=== PATIENT | female | born 1995 | race Caucasian/White ===

== ENCOUNTER 2017-03-18 13:04 | Emergency (ER) | payer BC ==
[~2017-03-18] VITALS: Ht 165.1 cm; Wt 54.0 kg
[2017-03-18 15:38] LABS: ADD MIUA? NO; BILIRUBIN NEGATIVE; BLOOD NEGATIVE; COLOR STRAW ((YELLOW)); GLUCOSE (STRIP) NEGATIVE; KETONES NEGATIVE; LEUKOCYTES NEGATIVE; NITRITE NEGATIVE; PROTEIN (STRIP) NEGATIVE; SPECIFIC GRAVITY 1.003 (1.000-1.030); UCUL ADDED? NO; UROBILINOGEN 0.2 MG/DL (0.2-1.0)
[2017-03-18] MEDS ORDERED: PREDNISONE50 MG PO (16:36)
[2017-03-18] MEDS ORDERED: ZANTAC300 MG PO (16:46)
[2017-03-18 17:02] VITALS: BP 132/84
[2017-03-19] MEDS ORDERED: PREDNISONE10 MG PO (02:51)
[2017-03-19] MEDS ORDERED: EPIPEN ADU0.3 MG/0.3 IM (02:52)
== END 2017-03-18 17:12 | disposition home or self-care (01) ==
LOC: EME 13:04
PROVIDERS: Emergency Medicine
DX: T78.40XA Allergy, unspecified, initial encounter (principal)
CPT/HCPCS: 81003; 99281; 99284; J1200; J2930; S0028

== ENCOUNTER 2017-03-18 22:53 | Emergency (ER) | payer BC ==
[~2017-03-18] VITALS: Ht 165.1 cm; Wt 57.8 kg
[~2017-03-18 22:53] MED LIST: PREDNISONE50 MG PO; ZANTAC300 MG PO
[2017-03-18 23:59] LABS: EOSINOPHIL (%) 0 % (0-5); HEMATOCRIT 35.1 % (36.0-46.0); IMMATURE GRANULOCYTE (%) 0.7 % (0.0-0.7); IMMATURE GRANULOCYTE COUNT 0.1 K/uL; INSTRUMENT ABS NEUTROPHIL CT 18.8 K/uL; LYMPHOCYTE COUNT 0.4 K/uL (1.0-2.8); MCH 28.6 PG (29.0-34.0); MCHC 32.8 G/DL (30.0-36.0); MCV 87.3 FL (83-99); MEAN PLAT.VOLUME 11.4 uM^3 (9.5-12.4); MONOCYTE (%) 2.2 % (3-12); MONOCYTE COUNT 0.4 K/uL (0-0.8); NEUTROPHIL COUNT 18.8 K/uL (1.8-6.4); PLATELET COUNT 144 K/uL (156-360); RBC DIS.WIDTH-CV 12.6 % (11.8-14.6); RBC DIS.WIDTH-SD 40.3 % (39-53); RED BLOOD COUNT 4.02 M/uL (3.80-5.20); WHITE BLOOD COUNT 19.7 K/uL (4.1-10.2)
[2017-03-19 00:11] LABS: CHLORIDE 112 mEq/L (99-109); POTASSIUM 3.9 mEq/L (3.7-5.4); SODIUM 140 mEq/L (136-147)
[2017-03-19 00:13] LABS: GLUCOSE 153 mg/dL (70-99)
[2017-03-19 00:14] LABS: ANION GAP 7 MEQ/L (2-14)
[2017-03-19 00:17] LABS: GFR ESTIMATE (CALCULATED) > 59 mL/min/
[2017-03-19 00:18] LABS: UREA NITROGEN (BUN) 8 mg/dL (9-23)
[2017-03-19 01:45] LABS: ERTH.SED.RATE 3 MM/HR (0-20)
[2017-03-19] MEDS ORDERED: PREDNISONE10 MG PO (02:51)
[2017-03-19] MEDS ORDERED: EPIPEN ADU0.3 MG/0.3 IM (02:52)
[2017-03-19 03:11] LABS: C-REACTIVE PROTEIN 13.5 MG/L (0-10)
[2017-03-19 03:46] VITALS: BP 108/78
== END 2017-03-19 03:48 | disposition home or self-care (01) ==
LOC: EME → EDBD 22:53 → EME 22:53
PROVIDERS: Emergency Medicine
DX: L50.0 Allergic urticaria (principal); T78.40XA Allergy, unspecified, initial encounter; Z87.440 Personal history of urinary (tract) infections
CPT/HCPCS: 80048; 85025; 85651; 86140; 99281; 99285; J1200; J7030; J7512; S0028